=== PATIENT | male | born 1945 | race Caucasian/White ===

== ENCOUNTER 2023-11-22 14:20 | Emergency (ER) | payer MEDICARE, SELFPAY ==
[2023-11-22] VITALS (12 sets, daily range): BP systolic 107–128; BP diastolic 65–77; PULSE 65–87; RESP 11–20; TEMP 36.7; O2SAT 94–99
--- NOTE | 2023-11-22 14:48 | ED.LOWEXIN ---
HPI - Extremity Injury (Lower) General Chief Complaint: Extremity Injury, Lower Stated Complaint: leg pain Time Seen by Provider: 11/22/23 14:25 History of Present Illness HPI Narrative: patient presenting with sudden severe pain to his right leg starting from the knee down, happened when he was walking. He had injured his left knee recently and had been using his right leg more than usual. Never had symptoms like this before, he states that he also has lost sensation below his right knee, other than some burning sensation, he also is only able to barely move his right foot. Does have history of high cholesterol. denies recent trauma to RLE. Related Data Allergies Allergy/AdvReac Type Severity Reaction Status Date / Time atorvastatin [From Lipitor] Allergy Unknown Verified 11/22/23 14:40 gadobenic acid Allergy Anaphylaxis Verified 11/22/23 14:36 [From contrast - MRI] iohexol Allergy Unknown Verified 11/22/23 14:36 [From contrast - CT, X-RAY] Review of Systems Review of Systems: CONST: No fever. HEENT: No sore throat C/V: No chest pain RESP: No cough GI: no abdominal pain : No dysuria. M/S: Right leg pain SKIN: No rash. NEURO: [focal numbness/weakness RLE] PSYCH: [No depression] Exam Narrative: EXAMINATION OF ORGAN SYSTEMS/BODY AREAS: Constitutional: Vital signs per nursing GENERAL: Appears slightly uncomfortable HEAD: Normal with no signs of head trauma. EYES: EOMI, conjunctiva normal ENT: Hearing grossly intact LUNGS: Nonlabored breathing. HEART: [Regular rate and rhythm]. No palpable DP or PT pulse RLE; strong DP/PT on LLE. Normal pop pulse RLE. ABD: [Soft], [nontender to palpation] EXT: Able to wiggle toes RLE but barely able to dorsiflex/plantarflex against gravity. No obvious deformity/swelling. SKIN: Paler, colder RLE compared to left below knee NEURO: [Alert and oriented x 3. Diminished sensation/strength RLE.] PSYCH: Normal affect Course Vital Signs Vital signs: Vital Signs Temperature 98.1 F 11/22/23 14:41 Pulse Rate 75 11/22/23 14:41 Respiratory Rate 12 11/22/23 14:41 Blood Pressure 128/77 11/22/23 14:41 Pulse Oximetry 95 11/22/23 14:41 Temperature 98.1 F 11/22/23 14:41 Pulse Rate 75 11/22/23 14:41 Respiratory Rate 12 11/22/23 14:41 Blood Pressure 128/77 11/22/23 14:41 Pulse Oximetry 95 11/22/23 14:41 MDM - Extremity Injury (Lower) MDM Narrative Medical decision making narrative: 78-year-old male presenting here with severe sudden onset pain to his right lower extremity, with coolness and weakness and numbness sensation, on exam he does appear uncomfortable, diminished sensation/strength RLE, poor cap refill, colder/paler foot. I am highly concerned for ischemic foot; on my bedside US I cannot see flow to R DP or PT; does have good flow to popliteal, and L DP/PT. He tells me he has anaphylactic shock to CT contrast dye so I have initiated pretreatment with steroids/benadryl, given morphine, and started heparin gtt. US called that their arterial doppler machine is broken and they cannot do any arterial US. EKG - 12-Lead: Performed at 1533. Interpreted by me. [Sinus rhythm]. Rate 59. Left axis. IL-interval 217. QRS duration [normal]. QTc 352. [No ST segment elevation or depression]. [T-wave normal]. Impression: No EKG evidence of acute ischemia or dysrhythmia. I discussed with patient/family need for transfer for vascular surgery and they requested Manuel. D/w vascular Dr. Moses at [facility] who requests patient transfer to ER there for definitive evaluation/treatment and pretreatment. D/w Dr Gonzalez, ER attending who accepts patient. Patient/family updated on plan. Lab Data 11/22/23 14:52 11/22/23 14:52 Labs: Lab Results 11/22/23 11/22/23 Range/Units 14:52 14:53 WBC 7.6 (4.5-10.0) K/mm3 RBC 4.62 (4.6-6.20) M/mm3 Hgb 14.7 (14.0-18.0) g/dL Hct 43.5 (42.0-52.0) % MC
[2023-11-22] MEDS: MORPHINE SULFATE (*CRX) 4 MG/ML INJ IV PUSH (14:54)
--- NOTE | 2023-11-22 14:59 | ECG_ITS ---
Measurements Intervals [place] Rate: 59 P: 38 [place]: 217 QRS: -46 QRSD: 98 T: 76 QT: 352 QTc: 350 Interpretive Statements SINUS BRADYCARDIA WITH FIRST DEGREE AV BLOCK LOW QRS VOLTAGE IN PRECORDIAL LEADS INCOMPLETE RIGHT BUNDLE BRANCH BLOCK LEFT ANTERIOR FASCICULAR BLOCK BORDERLINE ST-T WAVE ABNORMALITY- ANTEROLAT/HIGH LAT LEADS BASELINE WANDER- V4-V6 ABNORMAL ECG NO PREVIOUS ECG AVAILABLE FOR COMPARISON Electronically Signed On 11-23-2023 6:13:14 ADMIN DIR by Ananth Cevallos D.O.
[2023-11-22 15:00] LABS: Basophils Percent Auto 0.5 % (0.2-1.2); Eosinophils Absolute Auto 0.2 K/mm3 (0-0.3); Hematocrit 43.5 % (42.0-52.0); Hemoglobin 14.7 g/dL (14.0-18.0); Immature Granulocyte Absolute 0.05 K/mm3 (0.00-0.031); Immature Granulocyte Percent A 0.7 % (0-0.5); Immature Platelet Fraction Pct 2.7 % (0.9-11.2); Lymphocytes Absolute Auto 0.99 K/mm3 (0.9-3.2); Lymphocytes Percent Auto 13.1 % (18.3-44.2); Mean Corpuscular HGB Conc 33.8 g/dl (32-36); Mean Corpuscular Hemoglobin 31.8 pg (26-34); Mean Corpuscular Volume 94.2 fl (80-100); Mean Platelet Volume 9.5 fl (7.4-10.4); Monocytes Absolute Auto 0.5 K/mm3 (0.1-0.6); Neutrophils Absolute Auto 5.8 K/mm3 (1.3-6.7); Neutrophils Percent Auto 76.7 % (45.5-73.1); Platelet Count Result 147 k/mm3 (150-375); Red Blood Count 4.62 M/mm3 (4.6-6.20); Red Cell Distribution Width 13.9 % (11.5-14.5); White Blood Count 7.6 K/mm3 (4.5-10.0)
[2023-11-22 15:09] LABS: Lactic Acid Reflex 1.8 mmol/L (0.7-2.0)
[2023-11-22 15:09] LABS: Anion Gap 8 mmol/L (8-16); Blood Urea Nitrogen 20 mg/dL (9-20); Calcium 8.9 mg/dL (8.4-10.2); Carbon Dioxide 23 mmol/L (22-30); Chloride 104 mmol/L (98-107); Estimated CRCL calculation 40 ml/min; Estimated Glomerular Filt Rate 42; Glucose 133 mg/dL (65-110); Potassium 4.6 mmol/L (3.4-5.0); Sodium 135 mmol/L (137-145)
[2023-11-22] MEDS: HEPARIN SOD/D5W 100 UNITS/ML 25,000 UNITS/250 ML BAG 15 UNITS IV CONT (15:11)
[2023-11-22] MEDS: HEPARIN SODIUM 5,000 UNITS/ML VIAL 7500 UNITS IV PUSH (15:11)
[2023-11-22 15:14] LABS: Prothrombin Time 13.3 Seconds (11.1-14.7)
[2023-11-22 15:15] LABS: Partial Thromboplastin Time 28.1 SECONDS (22.3-36.8)
[2023-11-22] MEDS: diphenhydrAMINE HCl INJ 50 MG/ML VIAL IV PUSH (15:36)
[2023-11-22] MEDS: methylPREDNISolone SOD SUCC 125 MG VIAL IV PUSH (15:43)
--- NOTE | 2023-11-22 17:12 | PC.NURSE ---
1545- Pt transported via EMS, heparin drip continued per EMS
== END 2023-11-22 16:32 | disposition short-term general hospital (02) ==
PROVIDERS: Emergency Provider Emergency Medicine; PCP Family Medicine
DX: I99.8 Other disorder of circulatory system (principal); E78.00 Pure hypercholesterolemia, unspecified; R00.1 Bradycardia, unspecified; I44.0 Atrioventricular block, first degree; I45.2 Bifascicular block; R94.31 Abnormal electrocardiogram [ECG] [EKG]
CPT/HCPCS: 36415; 80048; 83605; 85025; 85055; 85610; 85730; 86850; 86900; 86901; 93005; 96365; 96375; 99285; J1200; J1644; J2270; J2930

== ENCOUNTER 2023-12-29 10:05 | Emergency (ER) | payer MEDICARE, SELFPAY ==
[2023-12-29] VITALS (7 sets, daily range): BP systolic 125–147; BP diastolic 67–79; PULSE 61–74; RESP 14–16; TEMP 36.4–36.7; O2SAT 97–100
--- NOTE | ~2023-12-29 | XR_ITS ---
EXAMINATION: XR chest 2V DATE: 12/29/2023 12:38 INDICATION: Dyspnea, hypotension and weakness TECHNIQUE: AP and lateral views of the chest were obtained. COMPARISON: None FINDINGS: The lungs are clear with no focal airspace opacities, pulmonary edema, pleural effusion or pneumothor ax. The cardiomediastinal silhouette is normal. Dual lead pacemaker seen with leads projecting over t he expected locations of the right atrium and right ventricle. Mild thoracic spondylosis. IMPRESSION: 1. No acute cardiopulmonary disease. Reviewed, dictated and finalized at location A. 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
--- NOTE | ~2023-12-29 | NM_ITS ---
EXAMINATION: NM lung vent and perfusion DATE: 12/29/2023 12:32 INDICATION: Hypotension, dyspnea and blood clots TECHNIQUE: 4.8 mCi xenon-133 by inhalation and 5.5 mCi Tc-99m MAA by intravenous route. Scintigraphi c images of the chest were obtained. COMPARISON: Chest radiograph dated 12/29/2023 FINDINGS: There is homogeneous radiotracer activity throughout the lungs on the single breath ventilation seque nce. There is relatively homogeneous perfusion throughout the lungs. No discrete ventilation and per fusion mismatch is identified. IMPRESSION: 1. Low probability for pulmonary embolism. Reviewed, dictated and finalized at location A. KER WIRER
--- NOTE | 2023-12-29 10:11 | ECG_ITS ---
Measurements Intervals [place] Rate: 63 P: 65 PA: 259 QRS: -35 QRSD: 99 T: 73 QT: 409 QTc: 421 Interpretive Statements SINUS RHYTHM WITH FIRST DEGREE AV BLOCK MARKED LEFT AXIS DEVIATION [QRS AXIS < -30] INCOMPLETE RIGHT BUNDLE BRANCH BLOCK [90+ ms QRS DURATION, TERMINAL R IN V1/V2, 40+ ms S IN I/aVL/V4/V5/V6] COMPARED TO ECG 11/22/2023 15:08:41 SINUS RHYTHM NOW PRESENT Electronically Signed On 12-29-2023 15:37:43 CASTING AGENT by Reno Car M.D.
[2023-12-29 10:41] LABS: Basophils Percent Auto 0.7 % (0.2-1.2); Eosinophils Absolute Auto 0.4 K/mm3 (0-0.3); Hematocrit 34.4 % (42.0-52.0); Hemoglobin 10.9 g/dL (14.0-18.0); Immature Granulocyte Absolute 0.04 K/mm3 (0.00-0.031); Immature Granulocyte Percent A 0.7 % (0-0.5); Lymphocytes Absolute Auto 1.44 K/mm3 (0.9-3.2); Mean Corpuscular HGB Conc 31.7 g/dl (32-36); Mean Corpuscular Hemoglobin 30.9 pg (26-34); Mean Corpuscular Volume 97.5 fl (80-100); Mean Platelet Volume 9.8 fl (7.4-10.4); Monocytes Absolute Auto 0.4 K/mm3 (0.1-0.6); Monocytes Percent Auto 6.8 % (2.6-8.5); Neutrophils Absolute Auto 3.7 K/mm3 (1.3-6.7); Neutrophils Percent Auto 60.8 % (45.5-73.1); Platelet Count Result 199 k/mm3 (150-375); Red Blood Count 3.53 M/mm3 (4.6-6.20)
[2023-12-29 10:52] LABS: INR 1.1; Prothrombin Time 14.7 Seconds (11.1-14.7)
[2023-12-29 10:53] LABS: Partial Thromboplastin Time 23.8 SECONDS (22.3-36.8)
--- NOTE | 2023-12-29 11:26 | PC.NURSE ---
Agree with assessment of Lili Omalley student nurse.
[2023-12-29 11:59] LABS: Alanine Aminotransferase 15 U/L (6-50); Alkaline Phosphatase 101 U/L (38-126); Anion Gap 3 mmol/L (8-16); Aspartate Amino Transferase 30 U/L (17-59); Bilirubin,Total 0.5 mg/dL (0.2-1.3); Blood Urea Nitrogen 18 mg/dL (9-20); Calcium 9.1 mg/dL (8.4-10.2); Carbon Dioxide 29 mmol/L (22-30); Chloride 99 mmol/L (98-107); Estimated CRCL calculation 46 ml/min; Estimated Glomerular Filt Rate 49; Glucose 128 mg/dL (65-110); Potassium 4.6 mmol/L (3.4-5.0); Sodium 131 mmol/L (137-145)
[2023-12-29 12:11] LABS: Troponin I < 0.012 ng/mL (0.000-0.034)
--- NOTE | 2023-12-29 13:50 | ED.GENADULT ---
HPI - General Adult General Chief complaint: Weakness Stated complaint: weakness Time Seen by Provider: 12/29/23 10:11 Source: patient Mode of arrival: EMS Limitations: no limitations History of Present Illness HPI narrative: 78 yr with a history of CAD, sick sinus syndrome, hyperlipidemia, right lower lumbar is ischemia status post bypass surgery, right leg multiple fish abdomen is presently in the rehab center was brought in for a complaint of near syncopal episode. Patient states that he had a sudden onset of right-sided chest pain which made him extremely nauseated and had a near syncopal episode. Patient presently denies having any chest pain. Patient states that every time he moves his right shoulder gets pain along the right side of his chest. Denies any shortness of breath or abdominal pain. States that he started rehab must have done something to his back and chest Onset (ago): hour(s) (1) Location: chest Radiation: non-radiation Quality: aching Pain Consistency: constant Relieving factors: immobilization Exacerbating factors: none Associated symptoms: denies other symptoms Related Data Home Medications Medication Instructions Recorded Confirmed acetaminophen 500 mg tablet 500 mg PO Q6H 12/08/23 12/25/23 allopurinol 300 mg tablet 300 mg PO DAILY 12/08/23 12/25/23 aspirin 81 mg chewable tablet 81 mg PO DAILY 12/08/23 12/25/23 (Aspirin Childrens) escitalopram oxalate 5 mg tablet 5 mg PO DAILY 12/08/23 12/25/23 gabapentin 100 mg capsule 200 mg PO TID 12/08/23 12/25/23 lidocaine 5 % topical patch 2 patch topical DAILY 12/08/23 12/25/23 (Lidoderm) oxycodone 5 mg tablet 5 mg PO Q4H PRN Pain rated 6 or 12/08/23 12/25/23 greater polyethylene glycol 3350 17 gram 17 g PO DAILY 12/08/23 12/25/23 oral powder packet rivaroxaban 20 mg tablet 20 mg PO DAILY 12/08/23 12/25/23 aluminum-mag hydroxide-simethicone 30 ml PO Q4H 12/25/23 12/25/23 400 mg-400 mg-40 mg/5 mL oral susp bacitracin 500 unit/gram topical 1 applic topical DAILY 12/25/23 12/25/23 ointment sennosides 8.6 mg-docusate sodium 1 tab-cap PO BID 12/25/23 12/25/23 50 mg capsule (Senna Plus) Allergies Allergy/AdvReac Type Severity Reaction Status Date / Time atorvastatin [From Lipitor] Allergy Unknown Verified 12/29/23 10:49 gadobenic acid Allergy Anaphylaxis Verified 12/29/23 10:49 [From contrast - MRI] levofloxacin [From Levaquin] Allergy Unknown Verified 12/29/23 10:49 iohexol AdvReac Unknown Verified 12/29/23 10:49 [From contrast - CT, X-RAY] Review of Systems Review of Systems: All systems reviewed & are unremarkable except as noted in HPI and below Constitutional: Constitutional: Reports no additional constitutional complaints Eyes: Eyes: Reports no additional eye complaints ENT: Reports system reviewed and no additional complaints, except as documented Cardiovascular: Cardiovascular: Reports as per HPI Respiratory: Respiratory: Reports as per HPI Gastrointestinal: Gastrointestinal: Reports nausea Musculoskeletal: Musculoskeletal: Reports no additional musculoskeletal complaints PMFSH Social History Social History Smoking packs per day: 1 Smoking cigarettes per day: 20.0 Smoking status: Former smoker Tobacco type: cigarettes Second hand tobacco smoke exposure: No Alcohol intake: never Substance use: never Substance use type: does not use Do You Feel Safe in your Home?: Yes Lack of Transportation: No Lack of Food: Never True Current Housing: I Have Housing Concerned About Future Housing: No Difficulty Paying Gas/Electric Bills: No Difficulty Paying for Meds: No Currently Unemployed: No Education: High School Diploma/GED Difficulty w/ Childcare or Family Care: No Spiritual care concerns: No Exam Narrative: GENERAL: Well-appearing, well-nourished, and in no acute distress. HEAD: Normocephalic, atraumatic. EYES: PE
== END 2023-12-29 14:27 ==
PROVIDERS: Emergency Provider Family Medicine; PCP Family Medicine
DX: R55 Syncope and collapse (principal); R07.9 Chest pain, unspecified; I25.10 Atherosclerotic heart disease of native coronary artery without angina pectoris; E78.5 Hyperlipidemia, unspecified; Z87.891 Personal history of nicotine dependence
CPT/HCPCS: 36415; 71046; 78582; 80053; 84484; 85025; 85610; 85730; 93005; 99284; A9540; A9558

== ENCOUNTER 2024-01-03 18:57 | Inpatient (IN) | payer MEDICARE, SELFPAY ==
--- NOTE | ~2024-01-03 | XR_ITS ---
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 RECENT SX TO LEG AT [facility] Comparison: 12/29/2023. RESULT: Lines, tubes, and devices: Left chest pacer with intact leads. Lungs and pleura: Clear. Cardiomediastinal silhouette: Stable. Other: No acute osseous or upper abdominal finding. IMPRESSION: No acute cardiopulmonary process. Reviewed, dictated and finalized at location K. HAMMER OPERATOR HELPER
[2024-01-03 18:54] VITALS: BP 105/61; PULSE 79; RESP 20; TEMP 36.4; O2SAT 95
--- NOTE | 2024-01-03 19:22 | ECG_ITS ---
Measurements Intervals [place] Rate: 72 P: 56 [place]: 233 QRS: -48 QRSD: 95 T: 55 QT: 363 QTc: 398 Interpretive Statements SINUS RHYTHM WITH FIRST DEGREE AV BLOCK INCOMPLETE RIGHT BUNDLE BRANCH BLOCK [90+ ms QRS DURATION, TERMINAL R IN V1/V2, 40+ ms S IN I/aVL/V4/V5/V6] LEFT ANTERIOR FASCICULAR BLOCK [QRS AXIS <= -45, QR IN I, RS IN II] ABNORMAL ECG COMPARED TO ECG 12/29/2023 10:14:07 NO SIGNIFICANT CHANGE Electronically Signed On 01-04-2024 7:21:08 TWIST MAKER by Eric Baires M.D.
[2024-01-03] MEDS: SODIUM CHLORIDE 0.9% IV 1,000 ML 999 ML IV CONT ×3 (19:31→21:53)
[2024-01-03 19:41] LABS: Basophils Absolute Auto 0.1 K/mm3 (0.0-0.1); Basophils Percent Auto 0.5 % (0.2-1.2); Hematocrit 31.3 % (42.0-52.0); Immature Granulocyte Absolute 0.81 K/mm3 (0.00-0.031); Immature Granulocyte Percent A 3.8 % (0-0.5); Lymphocytes Absolute Auto 1.27 K/mm3 (0.9-3.2); Lymphocytes Percent Auto 5.9 % (18.3-44.2); Mean Corpuscular HGB Conc 31.9 g/dl (32-36); Mean Corpuscular Hemoglobin 31.1 pg (26-34); Mean Corpuscular Volume 97.2 fl (80-100); Mean Platelet Volume 9.3 fl (7.4-10.4); Monocytes Absolute Auto 1.6 K/mm3 (0.1-0.6); Monocytes Percent Auto 7.4 % (2.6-8.5); Neutrophils Absolute Auto 17.7 K/mm3 (1.3-6.7); Neutrophils Percent Auto 82.4 % (45.5-73.1); Platelet Count Result 193 k/mm3 (150-375); Red Blood Count 3.22 M/mm3 (4.6-6.20); Red Cell Distribution Width 16.7 % (11.5-14.5); White Blood Count 21.5 K/mm3 (4.5-10.0)
[2024-01-03 19:50] LABS: Anisocytosis 1+ (NORMAL); Ovalocytes 1+ (NORMAL); Platelet Estimate Adequate (Adequate); Schistocytes None Seen (NORMAL)
[2024-01-03 19:52] LABS: INR 1.7; Prothrombin Time 21.2 Seconds (11.1-14.7)
[2024-01-03 19:52] LABS: Lactic Acid Reflex 1.2 mmol/L (0.7-2.0)
[2024-01-03 19:53] LABS: Alanine Aminotransferase 12 U/L (6-50); Albumin Level 3.6 g/dL (3.5-5.1); Alkaline Phosphatase 82 U/L (38-126); Anion Gap 6 mmol/L (8-16); Aspartate Amino Transferase 24 U/L (17-59); Bilirubin,Total 0.6 mg/dL (0.2-1.3); Blood Urea Nitrogen 32 mg/dL (9-20); Calcium 8.7 mg/dL (8.4-10.2); Carbon Dioxide 26 mmol/L (22-30); Chloride 93 mmol/L (98-107); Estimated CRCL calculation 28 ml/min; Estimated Glomerular Filt Rate 28; Glucose 140 mg/dL (65-110); Lipase 29 U/L (23-300); Partial Thromboplastin Time 45.4 SECONDS (22.3-36.8); Phosphorus 4.5 mg/dL (2.5-4.5); Sodium 125 mmol/L (137-145)
[2024-01-03 20:03] LABS: NT Pro B Type Natriuretic Pept 1590 pg/mL (19.9-100); Troponin I < 0.012 ng/mL (0.000-0.034)
--- NOTE | 2024-01-03 20:05 | ED.GENADULT ---
HPI - General Adult General Chief complaint: Recheck/Abnormal Lab/Rx Stated complaint: ABNORMAL LABS, FEVER, DARK URINE, AMS Time Seen by Provider: 01/03/24 19:15 History of Present Illness HPI narrative: This is a 78-year-old male presenting from [facility] for fever and tachycardia. History taken form [facility] progress note: Patient is status post right external iliac thrombectomy and 4 compartment fasciotomy on 11/22, fasciotomy closure by ACCS on 11/25/2023, lateral fasciotomy site closed 11/28 and sutures removed on 12/08 prior to discharge to [facility].? On 12/10 he return to the ED with worsening right lower extremity pain and swelling over the past 48 hours.? 2 status post OR for opening or of medial fasciotomy site; evacuation of hematoma; placement of NPWT.? Wound exploration; excisional debridement of skin and subcutaneous tissue; placement of NPWT by ACCS.? 12/15; return to the OR with ACCS for debridement, wound VAC and Manolo's ladder.? Lateral aspect will need a STSG.? Continue aspirin 12/19 RTOR with ACCS for closure of medial fasciotomy and skin graft lateral fasciotomy.? Wound VAC to lateral site will stay for 5 days.? Heparin drip resumed Patient has been doing well at the rehab center however yesterday he spiked a fever of 102.7. Patient is complaining fevers headaches and multiple episodes of nausea and vomiting. He has no pain anywhere. No chest pain or shortness of breath, abdominal pain. No increased pain at his surgical sites. At [facility] they obtained laboratory studies chest x-ray viral swabs and blood cultures. Additionally he was given a 1 g dose of ceftriaxone. Related Data Home Medications Medication Instructions Recorded Confirmed acetaminophen 500 mg tablet 500 mg PO Q6H 12/08/23 12/25/23 allopurinol 300 mg tablet 300 mg PO DAILY 12/08/23 12/25/23 aspirin 81 mg chewable tablet 81 mg PO DAILY 12/08/23 12/25/23 (Aspirin Childrens) escitalopram oxalate 5 mg tablet 5 mg PO DAILY 12/08/23 12/25/23 gabapentin 100 mg capsule 200 mg PO TID 12/08/23 12/25/23 lidocaine 5 % topical patch 2 patch topical DAILY 12/08/23 12/25/23 (Lidoderm) oxycodone 5 mg tablet 5 mg PO Q4H PRN Pain rated 6 or 12/08/23 12/25/23 greater polyethylene glycol 3350 17 gram 17 g PO DAILY 12/08/23 12/25/23 oral powder packet rivaroxaban 20 mg tablet 20 mg PO DAILY 12/08/23 12/25/23 aluminum-mag hydroxide-simethicone 30 ml PO Q4H 12/25/23 12/25/23 400 mg-400 mg-40 mg/5 mL oral susp bacitracin 500 unit/gram topical 1 applic topical DAILY 12/25/23 12/25/23 ointment sennosides 8.6 mg-docusate sodium 1 tab-cap PO BID 12/25/23 12/25/23 50 mg capsule (Senna Plus) Allergies Allergy/AdvReac Type Severity Reaction Status Date / Time atorvastatin [From Lipitor] Allergy Unknown Verified 01/03/24 22:09 gadobenic acid Allergy Anaphylaxis Verified 01/03/24 22:09 [From contrast - MRI] levofloxacin [From Levaquin] Allergy Unknown Verified 01/03/24 22:09 iohexol AdvReac Unknown Verified 01/03/24 22:09 [From contrast - CT, X-RAY] REPLACED BY [facility] Social History Social History Smoking packs per day: 1 Smoking cigarettes per day: 20.0 Smoking status: Former smoker Tobacco type: cigarettes Second hand tobacco smoke exposure: No Alcohol intake: never Substance use: never Substance use type: does not use Do You Feel Safe in your Home?: Yes Lack of Transportation: No Lack of Food: Never True Current Housing: I Have Housing Concerned About Future Housing: No Difficulty Paying Gas/Electric Bills: No Difficulty Paying for Meds: No Currently Unemployed: No Education: High School Diploma/GED Difficulty w/ Childcare or Family Care: No Spiritual care concerns: No Exam Narrative: APPEARANCE: No apparent distress. A&O x4 Head: atraumatic. EYES: EOMI, NOSE: Atraumatic NECK: Trachea midline RESPIRATORY: No increased rat
[2024-01-03 20:31] LABS: Potassium 5.6 mmol/L (3.4-5.0)
[2024-01-03] MEDS: SODIUM ZIRCONIUM CYCLOSILICATE 10 GM POWD.PACK PO (21:25)
[2024-01-03] MEDS: DEXTROSE 50% 25 GM/50 ML SYRINGE IV PUSH (21:28)
[2024-01-03] MEDS: INSULIN HUMAN REGULAR (*BKC) 100 UNITS/ML 10 UNITS IV PUSH (21:28)
[2024-01-03 21:36] LABS: Appearance Urine Cloudy (Clear); Bacteria Urine Rare /hpf; Bilirubin Urine Negative (Negative); Blood Urine 3+ (Negative); Color Urine Dark Yellow (Yellow); Glucose Urine UA Negative (Negative); Ketones Urine Negative (Negative); Leukocyte Esterase Ur 3+ LEU/UL (Negative); Need Manual Microscopic Reviewed; Nitrate Urine Negative (Negative); Protein Urine 1+ mg/dL (Negative); RBC Urine 21-50 /hpf (0-2); Specific Grav Ur 1.015 (1.001-1.035); Squamous Epithelial Cell Urine None seen /hpf (Few); WBC Urine >100 /hpf
[2024-01-03 21:37] LABS: Add Urine Microscopic? YES
[2024-01-03 21:38] LABS: Glucose Point of Care 124 mg/dl (65-105)
[2024-01-03 22:04] LABS: Glucose Point of Care 170 mg/dl (65-105)
[2024-01-03 22:12] VITALS: BP 92/54; PULSE 81; RESP 18; O2SAT 95
[2024-01-03 23:09] VITALS: BP 97/62; PULSE 71; RESP 13; TEMP 36.4; O2SAT 93
[2024-01-03 23:39] LABS: Troponin I < 0.012 ng/mL (0.000-0.034)
[2024-01-03 23:54] LABS: Influenza A QL RT-PCR Negative (Negative); Influenza B QL RT-PCR Negative (Negative); RSV RNA, RT-PCR Negative (Negative); SARS-CoV-2 RNA PCR Negative (Negative)
[2024-01-04] VITALS (15 sets, daily range): BP systolic 101–119; BP diastolic 33–68; PULSE 66–100; RESP 15–20; TEMP 36.1–36.8; O2SAT 95–100; BMI 26.3
[2024-01-04] MEDS: LACTATED RINGERS 1,000 ML 125 ML IV CONT ×2 (01:10→10:36)
--- NOTE | 2024-01-04 01:30 | ADMGEN ---
This patient, Eric Thrasher, was admitted to IMU Room 231-01. Patient/family oriented to hospital policies and general routines including ID bracelet, bed and alarms, visiting hours, pain management, procedures, bathroom and other care routines, personal items, smoking policy, room service/diet, and visiting hours. Information on how to activate the Rapid Response Team has been discussed. Patient/Family are encouraged to report perceived risks to care and to ask questions if they do not understand what they are told or what they should do.
--- NOTE | 2024-01-04 02:28 | PM.IMHP ---
H&P: HPI History of Present Illness Date/Time: 01/04/24 02:28 Chief Complaint: Fever and tachycardia. This is a 78-year-old male patient is status post right external iliac thrombectomy and 4 compartment fasciotomy was transferred from [facility] because of fever and tachycardia. Patient is awake alert not in acute distress. Patient denies any fever chills dizziness lightheadedness no blurred vision no chest pains no shortness of breath no cough no nausea no vomiting no diarrhea no dysuria no muscle and joint pains. Vital signs in the emergency room was stable. CBC showed WBC count of 21.5 hemoglobin 10.0 hematocrit 31.3 platelets count 193. PTT 21.2 INR 1.7 APTT 45.4. Sodium 125 potassium 5.6 chloride 93 carbon dioxide 26 BUN 32 creatinine 2.30. Glucose 140. Troponin unremarkable. BNP 1590. TSH 1.110. Lipase 29. Urinalysis showing bacteriuria and pyuria. Influenza COVID and RSV negative. Chest x-ray no acute cardiopulmonary process EKG showed sinus rhythm with first-degree AV block.. Patient was given IV ceftriaxone and IV fluids in the emergency room. Patient was also given or Lokelma. Review of Systems Review of Systems: A 12 point review of system is done and is only positive what is dictated in the history of present illness. [facility] Family History Family History (Updated 01/04/24 @ 02:26 by Suellen Birmingham RN) Other Unknown family medical history Social History Social History Smoking packs per day: 1 Smoking cigarettes per day: 20.0 Smoking status: Former smoker Tobacco type: cigarettes Second hand tobacco smoke exposure: No Alcohol intake: never Substance use: never Substance use type: does not use Do You Feel Safe in your Home?: Yes Lack of Transportation: No Lack of Food: Never True Current Housing: I Have Housing Concerned About Future Housing: No Difficulty Paying Gas/Electric Bills: No Difficulty Paying for Meds: No Currently Unemployed: No Education: Decline to Answer Difficulty w/ Childcare or Family Care: No Spiritual care concerns: No Meds Home Medications and Allergies Home Medications Medication Instructions Recorded Confirmed Type allopurinol 300 mg tablet 300 mg PO DAILY 12/08/23 01/04/24 History aspirin 81 mg chewable tablet 81 mg PO DAILY 12/08/23 01/04/24 History (Aspirin Childrens) escitalopram oxalate 5 mg tablet 5 mg PO DAILY 12/08/23 01/04/24 History gabapentin 100 mg capsule 200 mg PO TID 12/08/23 01/04/24 History lidocaine 5 % topical patch 2 patch topical DAILY 12/08/23 01/04/24 History (Lidoderm) oxycodone 5 mg tablet 5 mg PO Q4H PRN Pain rated 6 or 12/08/23 01/04/24 History greater polyethylene glycol 3350 17 gram 17 g PO DAILY 12/08/23 01/04/24 History oral powder packet aluminum-mag hydroxide-simethicone 30 ml PO Q4H 12/25/23 01/04/24 History 400 mg-400 mg-40 mg/5 mL oral susp sennosides 8.6 mg-docusate sodium 1 tab-cap PO BID 12/25/23 01/04/24 History 50 mg capsule (Senna Plus) acetaminophen 325 mg tablet 650 mg PO Q6H 01/04/24 01/04/24 History apixaban 5 mg tablet 5 mg PO BID 01/04/24 01/04/24 History ibuprofen 200 mg tablet 600 mg PO Q6H PRN Fever 01/04/24 01/04/24 History ondansetron 4 mg disintegrating 4 mg PO Q6H PRN Nausea And Vomiting 01/04/24 01/04/24 History tablet Allergies Allergy/AdvReac Type Severity Reaction Status Date / Time atorvastatin [From Lipitor] Allergy Unknown Verified 01/03/24 22:09 gadobenic acid Allergy Anaphylaxis Verified 01/03/24 22:09 [From contrast - MRI] levofloxacin [From Levaquin] Allergy Unknown Verified 01/03/24 22:09 iohexol AdvReac Unknown Verified 01/03/24 22:09 [From contrast - CT, X-RAY] Vital Signs Vital Signs - 24 hr 01/03/24 18:54 01/03/24 22:12 01/03/24 23:09 Temperature 97.5 F L 97.6 F Pulse Rate 79 81 71 Respiratory Rate 20 18 13 Blood Pressure 105/61 92/54 L
[2024-01-04] MEDS: ACETAMINOPHEN 325 MG TABLET 650 MG PO ×2 (04:28→19:10)
[2024-01-04 09:45] LABS: Basophils Percent Auto 0.2 % (0.2-1.2); Eosinophils Absolute Auto 0.2 K/mm3 (0-0.3); Eosinophils Percent Auto 1.2 % (0-4.4); Hematocrit 28.7 % (42.0-52.0); Immature Granulocyte Absolute 0.32 K/mm3 (0.00-0.031); Lymphocytes Absolute Auto 0.95 K/mm3 (0.9-3.2); Lymphocytes Percent Auto 5.9 % (18.3-44.2); Mean Corpuscular HGB Conc 31.4 g/dl (32-36); Mean Corpuscular Hemoglobin 31.1 pg (26-34); Mean Corpuscular Volume 99.3 fl (80-100); Mean Platelet Volume 9.9 fl (7.4-10.4); Monocytes Absolute Auto 0.9 K/mm3 (0.1-0.6); Monocytes Percent Auto 5.7 % (2.6-8.5); Neutrophils Absolute Auto 13.8 K/mm3 (1.3-6.7); Platelet Count Result 180 k/mm3 (150-375); Red Blood Count 2.89 M/mm3 (4.6-6.20); Red Cell Distribution Width 16.7 % (11.5-14.5); White Blood Count 16.2 K/mm3 (4.5-10.0)
[2024-01-04 09:57] LABS: Alanine Aminotransferase 13 U/L (6-50); Albumin Level 3.1 g/dL (3.5-5.1); Alkaline Phosphatase 81 U/L (38-126); Anion Gap 5 mmol/L (8-16); Aspartate Amino Transferase 23 U/L (17-59); Bilirubin,Total 0.4 mg/dL (0.2-1.3); Blood Urea Nitrogen 29 mg/dL (9-20); Calcium 8.5 mg/dL (8.4-10.2); Carbon Dioxide 25 mmol/L (22-30); Chloride 101 mmol/L (98-107); Estimated CRCL calculation 40 ml/min; Estimated Glomerular Filt Rate 42; Glucose 102 mg/dL (65-110); Potassium 4.4 mmol/L (3.4-5.0); Sodium 131 mmol/L (137-145)
[2024-01-04] MEDS: SENNA/DOCUSATE SODIUM TABLET 1 TAB PO ×2 (10:37→16:31)
[2024-01-04] MEDS: ASPIRIN 81 MG CHEWABLE TABLET PO (10:37)
[2024-01-04] MEDS: GABAPENTIN 100 MG CAPSULE 200 MG PO ×2 (10:37→16:31)
[2024-01-04] MEDS: allopurinoL 300 MG TABLET PO (10:37)
[2024-01-04] MEDS: APIXABAN 5 MG TABLET PO ×2 (10:37→20:50)
[2024-01-04] MEDS: ESCITALOPRAM OXALATE 5 MG TABLET PO (10:38)
[2024-01-04] MEDS: oxyCODONE HCL (*CRX) 5 MG TAB IR PO ×3 (10:41→20:50)
--- NOTE | 2024-01-04 13:06 | PM.IMPN ---
Progress Note: A&P Assessment and Plan (1) Acute UTI: Code(s): N39.0 - Urinary tract infection, site not specified Status: Acute (2) Sepsis: Code(s): A41.9 - Sepsis, unspecified organism Status: Acute (3) Acute kidney injury: Code(s): N17.9 - Acute kidney failure, unspecified Status: Acute (4) Acute hyperkalemia: Code(s): E87.5 - Hyperkalemia Status: Acute Plan 78-year-old male presented from [facility] for fever and tachycardia. He spiked fever of 102.7 and received a dose antibiotic after cultures were obtained at the [facility] [place]. In ED evaluation his blood pressure was borderline and was diagnosed with sepsis with fever and leukocytosis of 21,000 was also hyponatremic at 1:25 a.m. with creatinine of 2.3. Hyperkalemic at 5.6. Diagnosis sepsis received IV fluid and ceftriaxone improvement in blood pressure. For hyperkalemia Lokelma dextrose/insulin were given. VALENTINA continues to improve hyponatremia improved continue on ceftriaxone IV. Follow urine culture and blood culture. He is status post right external iliac thrombectomy and 4 compartment fasciotomy to make closure by AC CS on 11/25/2023, lateral fasciotomy site close and sutures removed on 12/08 prior to discharge to [facility]. On 12/10 he returned to the ED with worsening right lower extremity pain and swelling of the past 48 hours. Secondary to status post OR for opening of the medial fasciotomy site evacuation of hematoma placement of an PE double ET. Wound exploration, excisional debridement wound VAC and Manolo's ladder. Lateral aspect will need ST SG. Continue aspirin 2/10 RT OR with ACCS for closure of medial fasciotomy and skin graft lateral fasciotomy. Wound VAC to that side will stay for 5 days. DVT prophylaxis on Eliquis Subjective Date/time seen: 01/04/24 13:06 Interval history: 78-year-old male presented from [facility] for fever and tachycardia. He spiked fever of 102.7 and received a dose antibiotic after cultures were obtained at the [facility] [place]. In ED evaluation his blood pressure was borderline and was diagnosed with sepsis with fever and leukocytosis of 21,000 was also hyponatremic at 1:25 a.m. with creatinine of 2.3. Hyperkalemic at 5.6. Diagnosis sepsis received IV fluid and ceftriaxone improvement in blood pressure. For hyperkalemia Lokelma dextrose/insulin were given. VALENTINA continues to improve hyponatremia improved continue on ceftriaxone IV. Follow urine culture and blood culture. He is status post right external iliac thrombectomy and 4 compartment fasciotomy to make closure by AC CS on 11/25/2023, lateral fasciotomy site close and sutures removed on 12/08 prior to discharge to [facility]. On 12/10 he returned to the ED with worsening right lower extremity pain and swelling of the past 48 hours. Secondary to status post OR for opening of the medial fasciotomy site evacuation of hematoma placement of an PE double ET. Wound exploration, excisional debridement wound VAC and Manolo's ladder. Lateral aspect will need ST SG. Continue aspirin 2/10 RT OR with ACCS for closure of medial fasciotomy and skin graft lateral fasciotomy. Wound VAC to that side will stay for 5 days. Heparin drip resumed Review of Systems Review of Systems: All systems reviewed & are unremarkable except as noted in HPI and below Exam Narrative: APPEARANCE: No apparent distress.? A&O x4 Head: atraumatic. EYES:? EOMI, NOSE: Atraumatic NECK: Trachea midline RESPIRATORY: No increased rate of breathing clear to auscultation CARDIOVASCULAR: RRR, no peripheral edema ABDOMINAL: Non-distended soft nontender no guarding rebound no CVA tenderness MUSCULOSKELETAl:? Focal exam of the right leg showed skin graft on the lateral thigh that is healing well without fall smell.? Surgical sites in the leg also.? Healing well without obvious signs of infection. NEURO: Alert. Moving 4/4 extremities SKIN:: War
--- NOTE | 2024-01-04 18:13 | PC.NURSE ---
This patient, Eric Thrasher, was transferred to [facility] on 01/04/24 at 1813. Personal belongings sent with patient. Report given to Kathryn HIDALGO. Appropriate documentation sent with patient.
--- NOTE | 2024-01-04 19:06 | ADMGEN ---
This patient, Eric Thrasher, was admitted to [facility] Surg Room 314-02. Patient/family oriented to hospital policies and general routines including ID bracelet, bed and alarms, visiting hours, pain management, procedures, bathroom and other care routines, personal items, smoking policy, room service/diet, and visiting hours. Information on how to activate the Rapid Response Team has been discussed. Patient/Family are encouraged to report perceived risks to care and to ask questions if they do not understand what they are told or what they should do.
[2024-01-05] MEDS: oxyCODONE HCL (*CRX) 5 MG TAB IR PO ×3 (02:17→18:04)
[2024-01-05 03:24] VITALS: BP 115/70; PULSE 80; RESP 17; TEMP 36.6; O2SAT 98
[2024-01-05 06:23] LABS: Basophils Absolute Auto 0.1 K/mm3 (0.0-0.1); Basophils Percent Auto 0.6 % (0.2-1.2); Eosinophils Absolute Auto 0.6 K/mm3 (0-0.3); Hematocrit 28.7 % (42.0-52.0); Hemoglobin 8.9 g/dL (14.0-18.0); Lymphocytes Absolute Auto 1.82 K/mm3 (0.9-3.2); Lymphocytes Percent Auto 17.5 % (18.3-44.2); Mean Platelet Volume 9.8 fl (7.4-10.4); Monocytes Absolute Auto 0.6 K/mm3 (0.1-0.6); Monocytes Percent Auto 5.5 % (2.6-8.5); Neutrophils Absolute Auto 7.2 K/mm3 (1.3-6.7); Neutrophils Percent Auto 69.4 % (45.5-73.1); Platelet Count Result 174 k/mm3 (150-375); Red Blood Count 2.87 M/mm3 (4.6-6.20); Red Cell Distribution Width 16.7 % (11.5-14.5); White Blood Count 10.4 K/mm3 (4.5-10.0)
[2024-01-05 06:34] LABS: Alanine Aminotransferase 13 U/L (6-50); Albumin Level 3.2 g/dL (3.5-5.1); Alkaline Phosphatase 79 U/L (38-126); Anion Gap 5 mmol/L (8-16); Aspartate Amino Transferase 27 U/L (17-59); Bilirubin,Total 0.3 mg/dL (0.2-1.3); Blood Urea Nitrogen 22 mg/dL (9-20); Calcium 8.9 mg/dL (8.4-10.2); Carbon Dioxide 26 mmol/L (22-30); Chloride 103 mmol/L (98-107); Estimated CRCL calculation 53 ml/min; Estimated Glomerular Filt Rate 59; Glucose 92 mg/dL (65-110); Magnesium 2.2 mg/dL (1.6-2.3); Sodium 134 mmol/L (137-145)
[2024-01-05 06:39] LABS: Potassium 4.5 mmol/L (3.4-5.0)
[2024-01-05 08:00] VITALS: BP 123/71; PULSE 71; RESP 16; TEMP 36.1; O2SAT 97
[2024-01-05] MEDS: ASPIRIN 81 MG CHEWABLE TABLET PO (09:11)
[2024-01-05] MEDS: APIXABAN 5 MG TABLET PO ×2 (09:11→20:30)
[2024-01-05] MEDS: GABAPENTIN 100 MG CAPSULE 200 MG PO ×3 (09:12→18:06)
[2024-01-05] MEDS: allopurinoL 300 MG TABLET PO (09:12)
[2024-01-05] MEDS: ESCITALOPRAM OXALATE 5 MG TABLET PO (09:12)
[2024-01-05 11:16] VITALS: O2SAT 97
[2024-01-05 12:00] VITALS: BP 114/67; PULSE 60; RESP 16; TEMP 36; O2SAT 100
[2024-01-05] MEDS: ACETAMINOPHEN 325 MG TABLET 650 MG PO ×2 (12:43→18:05)
--- NOTE | 2024-01-05 14:18 | PM.IMPN ---
Progress Note: A&P Assessment and Plan (1) Acute UTI: Code(s): N39.0 - Urinary tract infection, site not specified Status: Acute (2) Sepsis: Code(s): A41.9 - Sepsis, unspecified organism Status: Acute (3) Acute kidney injury: Code(s): N17.9 - Acute kidney failure, unspecified Status: Acute (4) Acute hyperkalemia: Code(s): E87.5 - Hyperkalemia Status: Acute Plan 78-year-old male presented from [facility] for fever and tachycardia. He spiked fever of 102.7 and received a dose antibiotic after cultures were obtained at [facility]. In ED evaluation his blood pressure was borderline and was diagnosed with sepsis with fever and leukocytosis of 21,000 was also hyponatremic at 1:25 a.m. with creatinine of 2.3. Hyperkalemic at 5.6. Diagnosis sepsis received IV fluid and ceftriaxone improvement in blood pressure. For hyperkalemia Lokelma dextrose/insulin were given. VALENTINA continues to improve hyponatremia improved continue on ceftriaxone IV. Follow urine culture and blood culture. Urine culture still pending. Continue ceftriaxone oral therapy once urine culture finalizes. This could be done at [facility] as well. Insurance authorization pending. Okay to DC if they are able to accept on oral antibiotics He is status post right external iliac thrombectomy and 4 compartment fasciotomy to make closure by AC CS on 11/25/2023, lateral fasciotomy site close and sutures removed on 12/08 prior to discharge to [facility]. On 12/10 he returned to the ED with worsening right lower extremity pain and swelling of the past 48 hours. Secondary to status post OR for opening of the medial fasciotomy site evacuation of hematoma placement of an PE double ET. Wound exploration, excisional debridement wound VAC and Manolo's ladder. Lateral aspect will need ST SG. Continue aspirin 2/10 RT OR with ACCS for closure of medial fasciotomy and skin graft lateral fasciotomy. Wound VAC to that side will stay for 5 days. DVT prophylaxis on Eliquis Subjective Date/time seen: 01/05/24 14:18 Interval history: 78-year-old male presented from [facility] for fever and tachycardia. He spiked fever of 102.7 and received a dose antibiotic after cultures were obtained at the [facility]. In ED evaluation his blood pressure was borderline and was diagnosed with sepsis with fever and leukocytosis of 21,000 was also hyponatremic at 1:25 a.m. with creatinine of 2.3. Hyperkalemic at 5.6. Diagnosis sepsis received IV fluid and ceftriaxone improvement in blood pressure. For hyperkalemia Lokelma dextrose/insulin were given. VALENTINA continues to improve hyponatremia improved continue on ceftriaxone IV. Follow urine culture and blood culture. He is status post right external iliac thrombectomy and 4 compartment fasciotomy to make closure by AC CS on 11/25/2023, lateral fasciotomy site close and sutures removed on 12/08 prior to discharge to [facility]. On 12/10 he returned to the ED with worsening right lower extremity pain and swelling of the past 48 hours. Secondary to status post OR for opening of the medial fasciotomy site evacuation of hematoma placement of an PE double ET. Wound exploration, excisional debridement wound VAC and Manolo's ladder. Lateral aspect will need ST SG. Continue aspirin 2/10 RT OR with ACCS for closure of medial fasciotomy and skin graft lateral fasciotomy. Wound VAC to that side will stay for 5 days. Heparin drip resumed 01/05/2024: No new complaints. No overnight events. Labs reviewed. Still has some urinary symptoms. Review of Systems Review of Systems: All systems reviewed & are unremarkable except as noted in HPI and below Exam Narrative: APPEARANCE: No apparent distress.? A&O x4 Head: atraumatic. EYES:? EOMI, NOSE: Atraumatic NECK: Trachea midline RESPIRATORY: No increased rate of breathing clear to auscultation CARDIOVASCULAR: RRR, no peripheral edema ABDO
[2024-01-05 16:00] VITALS: BP 124/67; PULSE 65; RESP 16; TEMP 36; O2SAT 100
[2024-01-05] MEDS: NEOMYCIN/POLYMYXIN/BACITRACIN OINTMENT PACKET 6 PACKET (18:06)
[2024-01-05 19:58] LABS: Glucose Point of Care 126 mg/dl (65-105)
[2024-01-05 20:00] VITALS: BP 118/56; PULSE 73; RESP 13; TEMP 36.8; O2SAT 96
[2024-01-06 04:50] VITALS: BP 152/74; PULSE 76; RESP 14; TEMP 36.4; O2SAT 96
[2024-01-06] MEDS: ACETAMINOPHEN 325 MG TABLET 650 MG PO ×4 (06:14→22:57)
[2024-01-06 06:46] LABS: Basophils Absolute Auto 0.1 K/mm3 (0.0-0.1); Basophils Percent Auto 0.9 % (0.2-1.2); Eosinophils Absolute Auto 0.6 K/mm3 (0-0.3); Eosinophils Percent Auto 7.8 % (0-4.4); Hematocrit 33.1 % (42.0-52.0); Hemoglobin 10.3 g/dL (14.0-18.0); Immature Granulocyte Absolute 0.06 K/mm3 (0.00-0.031); Immature Granulocyte Percent A 0.9 % (0-0.5); Lymphocytes Absolute Auto 1.38 K/mm3 (0.9-3.2); Lymphocytes Percent Auto 19.6 % (18.3-44.2); Mean Corpuscular HGB Conc 31.1 g/dl (32-36); Mean Corpuscular Hemoglobin 30.9 pg (26-34); Mean Corpuscular Volume 99.4 fl (80-100); Mean Platelet Volume 9.6 fl (7.4-10.4); Monocytes Absolute Auto 0.4 K/mm3 (0.1-0.6); Neutrophils Absolute Auto 4.6 K/mm3 (1.3-6.7); Neutrophils Percent Auto 64.8 % (45.5-73.1); Platelet Count Result 229 k/mm3 (150-375); Red Blood Count 3.33 M/mm3 (4.6-6.20); Red Cell Distribution Width 16.4 % (11.5-14.5)
[2024-01-06 06:56] LABS: Alanine Aminotransferase 17 U/L (6-50); Albumin Level 3.7 g/dL (3.5-5.1); Alkaline Phosphatase 92 U/L (38-126); Anion Gap 5 mmol/L (8-16); Aspartate Amino Transferase 29 U/L (17-59); Bilirubin,Total 0.5 mg/dL (0.2-1.3); Blood Urea Nitrogen 16 mg/dL (9-20); Calcium 9.6 mg/dL (8.4-10.2); Carbon Dioxide 32 mmol/L (22-30); Chloride 100 mmol/L (98-107); Estimated CRCL calculation 49 ml/min; Estimated Glomerular Filt Rate 54; Glucose 99 mg/dL (65-110); Magnesium 2.3 mg/dL (1.6-2.3); Potassium 4.5 mmol/L (3.4-5.0); Sodium 137 mmol/L (137-145)
[2024-01-06] MEDS: SENNA/DOCUSATE SODIUM TABLET 1 TAB PO ×2 (09:03→17:03)
[2024-01-06] MEDS: ESCITALOPRAM OXALATE 5 MG TABLET PO (09:03)
[2024-01-06] MEDS: GABAPENTIN 100 MG CAPSULE 200 MG PO ×3 (09:04→17:03)
[2024-01-06] MEDS: allopurinoL 300 MG TABLET PO (09:04)
[2024-01-06] MEDS: ASPIRIN 81 MG CHEWABLE TABLET PO (09:04)
[2024-01-06] MEDS: oxyCODONE HCL (*CRX) 5 MG TAB IR PO ×4 (09:10→22:57)
[2024-01-06] MEDS: APIXABAN 5 MG TABLET PO ×2 (09:10→21:37)
[2024-01-06 12:00] VITALS: BP 128/63; PULSE 65; RESP 20; TEMP 36.6; O2SAT 99
--- NOTE | 2024-01-06 15:34 | PM.IMPN ---
Progress Note: A&P Assessment and Plan (1) Sepsis: Code(s): A41.9 - Sepsis, unspecified organism Status: Acute Assessment and Plan: Patient presents with sepsis symptoms. CXR clear. BCx NGTD UCx growing GNB - called lab and was informed that it is Pseudomonas with sensitivities pending. WBC normal now. Change Rocephin to Cefepime (2) Acute UTI: Code(s): N39.0 - Urinary tract infection, site not specified Status: Acute Assessment and Plan: UA is consistent with UTI. UCx collected. Rocephin started. UCx growing GNB (verbally told it is pseudomonas). Follow up on UCx results. (3) Acute kidney injury: Code(s): N17.9 - Acute kidney failure, unspecified Status: Acute Assessment and Plan: Patient with underlying renal disease with Cr 1.1-1.6 range. Cr 2.3 but now back down to baseline. Monitor UOP, electrolytes and Cr. (4) Acute hyperkalemia: Code(s): E87.5 - Hyperkalemia Status: Acute Assessment and Plan: Potassium 5.6 on admission and now normal. Follow (5) Acute lower limb ischemia: Code(s): I99.8 - Other disorder of circulatory system Status: Acute Assessment and Plan: Patient presented to the ED 11/22/23 for leg pain and was found to have no pulses in right lower extremity.? He was transferred to [facility] for emergent evaluation and found to have acute lower extremity ischemia.? Taken to the OR for pulseless right foot with thrombectomy from the right external iliac artery and 4 compartment fasciotomy.? 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 Patient required NG tube which was removed 12/06.? Patient at [facility] for therapy (6) H/O fasciotomy: Code(s): Z98.890 - Other specified postprocedural states Status: Acute Assessment and Plan: As above Continue wound vac Plan Code status - full DVT prophylaxis on Eliquis Subjective Date/time seen: 01/06/24 15:34 Interval history: 78yo male status post right external iliac thrombectomy and 4 compartment fasciotomy was transferred from [facility] because of fever and tachycardia.?? Assuming care. Chart reviewed. He is 'feeling down' but denies SI/HI. No Cp or SOb. No n/v. No lower having dysuria and urine appears clear. Exam Narrative: AF 97.8 128/63 65 20 99% ra Gen - NARD sitting at the side of the bed. Chest - CTA bilaterally, nml RR CV - RRR S1/S2 Abd - Soft, NT/ND, Positive BS Ext - Rt LE AMELIA wrapped. No left pedal edema Neuro - Alert and appropriate Psych - Sad mood but normal affect. nml eye contact. well groomed. Skin - Warm and dry ? Objective Data Vital Signs Vital Signs: Vital Signs - 24 hr 01/05/24 16:00 01/05/24 20:00 01/06/24 04:50 Temperature 96.8 F L 98.2 F 97.6 F Pulse Rate 65 73 76 Respiratory Rate 16 13 14 Blood Pressure 124/67 118/56 L 152/74 H Pulse Oximetry 100 96 96 Oxygen Delivery 01/06/24 08:00 01/06/24 12:00 Temperature 97.8 F Pulse Rate 65 Respiratory Rate 20 Blood Pressure 128/63 Pulse Oximetry 99 Oxygen Delivery Room Air Intake/Output Intake/Output: Intake & Output 01/03/24 01/04/24 01/05/24 01/06/24 23:59 23:59 23:59 23:59 Intake Total 5750 3250 1730 1822 Output Total 200 3350 2575 1200 Balance 1090 -100 -845 622 Meds/Results Medications: Active Medications Generic Name Dose Route Start Last Admin Trade Name Freq PRN Reason Stop Dose Admin Acetaminophen 650 mg 01/04/24 04:05 01/06/24 12:29 Acetaminophen 325 Mg Tablet PO 650 mg Q6HR DARBY Administration Al Hydrox/Mg Hydrox/Simethicone 30 ml 01/04/24 18:09 Mag Hydrox/Al Hydrox/Simeth 30 Ml Udc PO Q4H PRN Indigestion Allopurinol 300 mg 01/04/24 09:00 01/06/24 09:04 Allopurinol 300 Mg Tablet PO 300 mg DAILY DARBY Administra
[2024-01-06] MEDS: CEFEPIME 1 GM/NS 50 ML 1 GM/50 ML BAG IVPB (17:03)
[2024-01-06 17:31] LABS: Glucose Point of Care 109 mg/dl (65-105)
--- NOTE | 2024-01-06 19:00 | PC.NURSE ---
Returned to room from OR per hospital bed.
[2024-01-06 20:00] VITALS: BP 107/59; PULSE 65; RESP 12; TEMP 36.6; O2SAT 96
[2024-01-07 04:00] VITALS: BP 132/62; PULSE 62; RESP 14; TEMP 36.3; O2SAT 98
[2024-01-07] MEDS: ACETAMINOPHEN 325 MG TABLET 650 MG PO ×3 (05:02→17:46)
[2024-01-07] MEDS: CEFEPIME 1 GM/NS 50 ML 1 GM/50 ML BAG IVPB ×2 (05:02→17:47)
[2024-01-07 06:41] LABS: Hematocrit 32.1 % (42.0-52.0); Hemoglobin 10.2 g/dL (14.0-18.0); Mean Corpuscular HGB Conc 31.8 g/dl (32-36); Mean Corpuscular Hemoglobin 31.1 pg (26-34); Mean Corpuscular Volume 97.9 fl (80-100); Mean Platelet Volume 9.6 fl (7.4-10.4); Platelet Count Result 221 k/mm3 (150-375); Red Blood Count 3.28 M/mm3 (4.6-6.20); Red Cell Distribution Width 15.9 % (11.5-14.5); White Blood Count 6.7 K/mm3 (4.5-10.0)
[2024-01-07 06:57] LABS: Anion Gap 7 mmol/L (8-16); Blood Urea Nitrogen 15 mg/dL (9-20); Calcium 9.3 mg/dL (8.4-10.2); Carbon Dioxide 30 mmol/L (22-30); Chloride 98 mmol/L (98-107); Estimated CRCL calculation 49 ml/min; Estimated Glomerular Filt Rate 54; Glucose 100 mg/dL (65-110); Potassium 4.6 mmol/L (3.4-5.0); Sodium 135 mmol/L (137-145)
[2024-01-07 08:21] LABS: Glucose Point of Care 97 mg/dl (65-105)
[2024-01-07] MEDS: allopurinoL 300 MG TABLET PO (09:51)
[2024-01-07] MEDS: ESCITALOPRAM OXALATE 5 MG TABLET PO (09:51)
[2024-01-07] MEDS: GABAPENTIN 100 MG CAPSULE 200 MG PO ×3 (09:51→17:45)
[2024-01-07] MEDS: SENNA/DOCUSATE SODIUM TABLET 1 TAB PO ×2 (09:51→17:45)
[2024-01-07] MEDS: ASPIRIN 81 MG CHEWABLE TABLET PO (09:51)
[2024-01-07] MEDS: APIXABAN 5 MG TABLET PO ×2 (09:51→20:29)
[2024-01-07 11:56] LABS: Glucose Point of Care 131 mg/dl (65-105)
[2024-01-07 12:00] VITALS: BP 147/75; PULSE 81; RESP 22; TEMP 37.2; O2SAT 100
--- NOTE | 2024-01-07 14:37 | PM.IMPN ---
Progress Note: A&P Assessment and Plan (1) Sepsis: Code(s): A41.9 - Sepsis, unspecified organism Status: Acute Assessment and Plan: Patient presents with sepsis symptoms. CXR clear. BCx NGTD UCx growing Pseudomonas Changed Rocephin to Cefepime WBC normal now. Will need 7 days of treatment. (2) Acute UTI: Code(s): N39.0 - Urinary tract infection, site not specified Status: Acute Assessment and Plan: UA is consistent with UTI. UCx collected. Rocephin started. UCx growing Pseudomonas. Abx adjusted. (3) Acute kidney injury: Code(s): N17.9 - Acute kidney failure, unspecified Status: Acute Assessment and Plan: Patient with underlying renal disease with Cr 1.1-1.6 range. Cr 2.3 but now back down to baseline. Monitor UOP, electrolytes and Cr. (4) Acute hyperkalemia: Code(s): E87.5 - Hyperkalemia Status: Acute Assessment and Plan: Potassium 5.6 on admission and now normal. Follow (5) Acute lower limb ischemia: Code(s): I99.8 - Other disorder of circulatory system Status: Acute Assessment and Plan: Patient presented to the ED 11/22/23 for leg pain and was found to have no pulses in right lower extremity.? He was transferred to [facility] for emergent evaluation and found to have acute lower extremity ischemia.? Taken to the OR for pulseless right foot with thrombectomy from the right external iliac artery and 4 compartment fasciotomy.? 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 Patient required NG tube which was removed 12/06.? Patient was at [facility] for therapy and wishes to return Suspect his feeling of hot/clammy related to over-exertion and deconditioning. Check orthostatic vitals. Continue PT/OT (6) H/O fasciotomy: Code(s): Z98.890 - Other specified postprocedural states Status: Acute Assessment and Plan: As above Continue current treatment plan Plan Code status - full DVT prophylaxis on Eliquis Subjective Date/time seen: 01/07/24 14:37 Interval history: 78yo male status post right external iliac thrombectomy and 4 compartment fasciotomy was transferred from [facility] because of fever and tachycardia.?? Feels hot and clammy after coming back from the pharmacy. He was having similar symptoms when at [facility]. Had similar but mild symptoms when working with PT later in the day. SBP was 100 but improved to 120 when resting. Exam Narrative: AF 99.0 147/75 81 22 100% ra Gen - NARD Chest - CTA bilaterally, nml RR CV - RRR S1/S2 Abd - Soft, NT/ND, Positive BS Ext - Rt LE AMELIA wrapped. Neuro - Alert and appropriate Psych - normal mood and affect Skin - mildly clammy ? Objective Data Vital Signs Vital Signs: Vital Signs - 24 hr 01/06/24 20:00 01/06/24 20:00 01/07/24 04:00 Temperature 97.8 F 97.3 F L Pulse Rate 65 62 Respiratory Rate 12 14 Blood Pressure 107/59 L 132/62 Pulse Oximetry 96 96 98 Oxygen Delivery Room Air 01/07/24 09:50 01/07/24 12:00 Temperature 99.0 F Pulse Rate 81 Respiratory Rate 22 H Blood Pressure 147/75 H Pulse Oximetry 100 Oxygen Delivery Room Air Intake/Output Intake/Output: Intake & Output 01/04/24 01/05/24 01/06/24 01/07/24 23:59 23:59 23:59 23:59 Intake Total 3250 1730 2352 1250 Output Total 3350 2575 1800 2500 Balance -100 -845 552 -1250 Meds/Results Medications: Active Medications Generic Name Dose Route Start Last Admin Trade Name Freq PRN Reason Stop Dose Admin Acetaminophen 650 mg 01/04/24 04:05 01/07/24 12:58 Acetaminophen 325 Mg Tablet PO 650 mg Q6HR DARBY Administration Al Hydrox/Mg Hydrox/Simethicone 30 ml 01/04/24 18:09 Mag Hydrox/Al Hydrox/Simeth 30 Ml Udc PO Q4H PRN Indigestion Allopurinol 300 mg 01/04/24 09:00
[2024-01-07 14:47] VITALS: BP 122/64; PULSE 62
[2024-01-07] MEDS: oxyCODONE HCL (*CRX) 5 MG TAB IR PO ×2 (14:59→20:28)
[2024-01-07 17:06] LABS: Glucose Point of Care 115 mg/dl (65-105)
[2024-01-07 17:30] VITALS: BP 79/51; BP 99/63; PULSE 110; PULSE 90
[2024-01-07] MEDS: SODIUM CHLORIDE 0.9% IV 1,000 ML 100 ML IV CONT (18:55)
[2024-01-07 20:23] VITALS: BP 123/67; PULSE 68; RESP 16; TEMP 36.4; O2SAT 97
[2024-01-07 21:09] LABS: Glucose Point of Care 132 mg/dl (65-105)
[2024-01-08] VITALS (8 sets, daily range): BP systolic 111–143; BP diastolic 53–75; PULSE 65–118; RESP 16–17; TEMP 36.3–36.4; O2SAT 98–100
[2024-01-08] MEDS: ACETAMINOPHEN 325 MG TABLET 650 MG PO ×4 (00:45→17:27)
[2024-01-08] MEDS: CEFEPIME 1 GM/NS 50 ML 1 GM/50 ML BAG IVPB ×2 (04:17→15:32)
[2024-01-08] MEDS: oxyCODONE HCL (*CRX) 5 MG TAB IR PO ×3 (06:22→22:13)
[2024-01-08 08:07] LABS: Glucose Point of Care 97 mg/dl (65-105)
[2024-01-08] MEDS: GABAPENTIN 100 MG CAPSULE 200 MG PO ×3 (08:58→17:27)
[2024-01-08] MEDS: ASPIRIN 81 MG CHEWABLE TABLET PO (08:58)
[2024-01-08] MEDS: ESCITALOPRAM OXALATE 5 MG TABLET PO (08:59)
[2024-01-08] MEDS: APIXABAN 5 MG TABLET PO ×2 (08:59→21:03)
[2024-01-08] MEDS: allopurinoL 300 MG TABLET PO (08:59)
[2024-01-08 11:26] LABS: Glucose Point of Care 104 mg/dl (65-105)
--- NOTE | 2024-01-08 13:16 | PM.IMPN ---
Progress Note: A&P Assessment and Plan (1) Sepsis: Code(s): A41.9 - Sepsis, unspecified organism Status: Acute Assessment and Plan: Patient presents with sepsis symptoms. CXR clear. BCx NGTD UCx growing Pseudomonas Changed Rocephin to Cefepime WBC normal now. Will need 7 days of treatment. (2) Acute UTI: Code(s): N39.0 - Urinary tract infection, site not specified Status: Acute Assessment and Plan: UA is consistent with UTI. UCx collected. Rocephin started. UCx growing Pseudomonas. Abx adjusted. (3) Orthostatic hypotension: Code(s): I95.1 - Orthostatic hypotension Status: Acute Assessment and Plan: Patient was feeling hot/clammy felt related to over-exertion and deconditioning. Symptoms occurred at [facility] and again here. Orthostatic vital signs performed: -Supine 122/64, HR 62 -Sitting 99/63, HR 90 -Standing 79/51, HR 110 TSH and cortisol normal. Kalia pierce added. NS x 1 liter. Repeat SBP 139 -> 136 -> 116 with HR 65 -> 118. Still orthostatic but better. Push fluids Follow clinically. (4) Acute kidney injury: Code(s): N17.9 - Acute kidney failure, unspecified Status: Acute Assessment and Plan: Patient with underlying renal disease with Cr 1.1-1.6 range. Cr 2.3 but now back down to baseline. Monitor UOP, electrolytes and Cr. (5) Acute hyperkalemia: Code(s): E87.5 - Hyperkalemia Status: Acute Assessment and Plan: Potassium 5.6 on admission and now normal. Follow (6) Acute lower limb ischemia: Code(s): I99.8 - Other disorder of circulatory system Status: Acute Assessment and Plan: Patient presented to the ED 11/22/23 for leg pain and was found to have no pulses in right lower extremity.? He was transferred to [facility] for emergent evaluation and found to have acute lower extremity ischemia.? Taken to the OR for pulseless right foot with thrombectomy from the right external iliac artery and 4 compartment fasciotomy.? 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 Patient required NG tube which was removed 12/06.? Patient was at [facility] for therapy and wishes to return Continue PT/OT (7) H/O fasciotomy: Code(s): Z98.890 - Other specified postprocedural states Status: Acute Assessment and Plan: As above Continue current treatment plan Plan Code status - full DVT prophylaxis on Eliquis Subjective Date/time seen: 01/08/24 13:16 Interval history: 78yo male status post right external iliac thrombectomy and 4 compartment fasciotomy was transferred from [facility] because of fever and tachycardia.?? No problems overnight. Not lightheaded with standing. Feels well. Requesting discharge Exam Narrative: AF 97.6 116/59 118 16 100% ra Gen - NARD Chest - CTA bilaterally, nml RR CV - RRR S1/S2 Abd - Soft, NT/ND, Positive BS Ext - Rt LE AMELIA wrapped. Psych - normal mood and affect Skin - warm and dry ? Objective Data Vital Signs Vital Signs: Vital Signs - 24 hr 01/07/24 14:47 01/07/24 17:30 01/07/24 17:30 Temperature Pulse Rate 62 90 110 H Respiratory Rate Blood Pressure 122/64 99/63 L 79/51 L Pulse Oximetry Oxygen Delivery 01/07/24 20:23 01/08/24 05:04 01/08/24 08:00 Temperature 97.5 F L 97.3 F L Pulse Rate 68 69 Respiratory Rate 16 16 Blood Pressure 123/67 143/68 H Pulse Oximetry 97 100 Oxygen Delivery Room Air 01/08/24 08:00 01/08/24 09:47 01/08/24 09:47 Temperature 97.6 F 97.6 F 97.6 F Pulse Rate 65 73 118 H Respiratory Rate 16 16 16 Blood Pressure 139/71 136/57 L 116/59 L Pulse Oximetry 98 100 100 Oxygen Delivery Intake/Output Intake/Output: Intake & Output 01/05/24 01/06/24 01/07/24 01/08/24 23:59 23:59 23:59 23:59 Intake Total 1730 2352 2260 2570 Out
[2024-01-08 16:24] LABS: Glucose Point of Care 102 mg/dl (65-105)
[2024-01-08 20:36] LABS: Glucose Point of Care 102 mg/dl (65-105)
[2024-01-09] MEDS: CEFEPIME 1 GM/NS 50 ML 1 GM/50 ML BAG IVPB ×2 (04:30→17:43)
[2024-01-09 04:45] VITALS: BP 117/71; PULSE 60; RESP 16; TEMP 36.1; O2SAT 97
[2024-01-09] MEDS: ACETAMINOPHEN 325 MG TABLET 650 MG PO ×3 (06:14→17:42)
[2024-01-09 06:29] LABS: Hemoglobin 10.6 g/dL (14.0-18.0); Mean Corpuscular HGB Conc 32.1 g/dl (32-36); Mean Corpuscular Volume 96.5 fl (80-100); Mean Platelet Volume 9.2 fl (7.4-10.4); Platelet Count Result 209 k/mm3 (150-375); Red Blood Count 3.42 M/mm3 (4.6-6.20); Red Cell Distribution Width 15.6 % (11.5-14.5); White Blood Count 6.4 K/mm3 (4.5-10.0)
[2024-01-09 06:41] LABS: Anion Gap 3 mmol/L (8-16); Blood Urea Nitrogen 17 mg/dL (9-20); Calcium 9.3 mg/dL (8.4-10.2); Carbon Dioxide 30 mmol/L (22-30); Chloride 99 mmol/L (98-107); Estimated CRCL calculation 49 ml/min; Estimated Glomerular Filt Rate 54; Glucose 96 mg/dL (65-110); Potassium 4.8 mmol/L (3.4-5.0); Sodium 132 mmol/L (137-145)
[2024-01-09 08:24] LABS: Glucose Point of Care 95 mg/dl (65-105)
[2024-01-09] MEDS: ESCITALOPRAM OXALATE 5 MG TABLET PO (09:58)
[2024-01-09] MEDS: GABAPENTIN 100 MG CAPSULE 200 MG PO ×3 (09:58→17:42)
[2024-01-09] MEDS: APIXABAN 5 MG TABLET PO ×2 (09:58→20:21)
[2024-01-09] MEDS: allopurinoL 300 MG TABLET PO (09:58)
[2024-01-09] MEDS: ASPIRIN 81 MG CHEWABLE TABLET PO (09:58)
[2024-01-09] MEDS: SENNA/DOCUSATE SODIUM TABLET 1 TAB PO (09:59)
[2024-01-09 10:23] VITALS: BP 123/60
[2024-01-09 10:25] VITALS: BP 116/66
[2024-01-09 10:27] VITALS: BP 98/70
--- NOTE | 2024-01-09 12:03 | PM.IMPN ---
Progress Note: A&P Assessment and Plan (1) Sepsis: Code(s): A41.9 - Sepsis, unspecified organism <Angie Mondragon Student - Last Filed: 01/09/24 14:10> Status: Acute <Angie Mondragon, Student - Last Filed: 01/09/24 14:10> Assessment and Plan: Patient presents with sepsis symptoms. CXR clear. BCx NGTD UCx growing Pseudomonas Changed Rocephin to Cefepime WBC normal now. Continue Cefepime (day 3) <Angie Mondragon Student - Last Filed: 01/09/24 14:10> Patient presents with sepsis symptoms related to UTI. CXR clear. BCx Negative. UCx growing Pseudomonas Changed Rocephin to Cefepime WBC normal now. Continue Cefepime (day 02/13) <Toni An MD - Last Filed: 01/09/24 16:19> (2) Acute UTI: Code(s): N39.0 - Urinary tract infection, site not specified <Angie Mondragon, Student - Last Filed: 01/09/24 14:10> Status: Acute <Angie Mondragon, Student - Last Filed: 01/09/24 14:10> Assessment and Plan: UA is consistent with UTI. UCx collected. Rocephin started on arrival UCx growing Pseudomonas. Abx adjusted as seen above <Angie Mondragon, Student - Last Filed: 01/09/24 14:10> (3) Orthostatic hypotension: Code(s): I95.1 - Orthostatic hypotension <Angie Mondragon, Student - Last Filed: 01/09/24 14:10> Status: Acute <Angie Mondragon, Student - Last Filed: 01/09/24 14:10> Assessment and Plan: Patient was feeling hot/clammy felt related to over-exertion and deconditioning. Symptoms occurred at [facility] and again here. Kalia pierce added. Continued pushing fluids Orthostatic vital signs performed 01/08: Supine: 123/60 Sittin/66 Standin/70 Still orthostatic, but getting better TSH and cortisol normal. Follow clinically. <Angie DiazJake Mondragon Student - Last Filed: 01/09/24 14:10> (4) Acute kidney injury: Code(s): N17.9 - Acute kidney failure, unspecified <Angie JoeJake Mondragon, Student - Last Filed: 01/09/24 14:10> Status: Acute <Angie DiazJake Mondragon, Student - Last Filed: 01/09/24 14:10> Assessment and Plan: Patient with underlying renal disease with Cr 1.1-1.6 range. Cr 2.3 but now back down to baseline. Monitor UOP, electrolytes and Cr. <Angie Mondragon, Student - Last Filed: 01/09/24 14:10> (5) Acute hyperkalemia: Code(s): E87.5 - Hyperkalemia <Angie Mondragon, Student - Last Filed: 01/09/24 14:10> Status: Acute <Angie Mondragon, Student - Last Filed: 01/09/24 14:10> Assessment and Plan: Potassium 5.6 on admission and now normal. Follow <Angie Mondragon, Student - Last Filed: 01/09/24 14:10> (6) Acute lower limb ischemia: Code(s): I99.8 - Other disorder of circulatory system <Angie Mondragon, Student - Last Filed: 01/09/24 14:10> Status: Acute <Angie Mondragon, - Last Filed: 01/09/24 14:10> Assessment and Plan: Patient presented to the ED 11/22/23 for leg pain and was found to have no pulses in right lower extremity.? He was transferred to [facility] for emergent evaluation and found to have acute lower extremity ischemia.? Taken to the OR for pulseless right foot with thrombectomy from the right external iliac artery and 4 compartment fasciotomy.? 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 Patient required NG tube which was removed 12/06.? Patient was at [facility] for therapy and wishes to return Continue PT/OT <Angie Mondragon, Student - Last Filed: 01/09/24 14:10> (7) H/O fasciotomy: Code(s): Z98.890 - Other specified postprocedural states <Angie Mondragon, Student - Last Filed: 01/09/24 14:10> Status: Acute <Angie Mondragon, Student - Last Filed: 01/09/24 14:10> As
[2024-01-09 13:00] LABS: Glucose Point of Care 124 mg/dl (65-105)
[2024-01-09] MEDS: oxyCODONE HCL (*CRX) 5 MG TAB IR PO ×2 (13:12→22:06)
[2024-01-09 16:35] VITALS: BP 114/63; PULSE 77; RESP 16; TEMP 36.6; O2SAT 97
[2024-01-09 17:38] LABS: Glucose Point of Care 116 mg/dl (65-105)
[2024-01-09] MEDS: DOCOSANOL 10% CREAM 2 GM 1 APPLIC TOPICAL ×2 (17:43→20:21)
[2024-01-09 20:20] VITALS: BP 104/65; PULSE 69; RESP 16; TEMP 36.4; O2SAT 98
[2024-01-09 20:45] LABS: Glucose Point of Care 123 mg/dl (65-105)
[2024-01-10] MEDS: CEFEPIME 1 GM/NS 50 ML 1 GM/50 ML BAG IVPB ×2 (04:33→15:05)
[2024-01-10 04:59] VITALS: BP 124/63; PULSE 71; RESP 16; TEMP 36.6; O2SAT 94
[2024-01-10] MEDS: ACETAMINOPHEN 325 MG TABLET 650 MG PO ×3 (05:19→21:22)
[2024-01-10 07:48] LABS: Glucose Point of Care 100 mg/dl (65-105)
[2024-01-10 08:00] VITALS: BP 116/70; PULSE 90
[2024-01-10] MEDS: allopurinoL 300 MG TABLET PO (09:05)
[2024-01-10] MEDS: GABAPENTIN 100 MG CAPSULE 200 MG PO ×3 (09:05→17:20)
[2024-01-10] MEDS: APIXABAN 5 MG TABLET PO ×2 (09:05→21:18)
[2024-01-10] MEDS: ASPIRIN 81 MG CHEWABLE TABLET PO (09:06)
[2024-01-10] MEDS: ESCITALOPRAM OXALATE 5 MG TABLET PO (09:06)
[2024-01-10] MEDS: SENNA/DOCUSATE SODIUM TABLET 1 TAB PO ×2 (09:06→17:20)
[2024-01-10] MEDS: DOCOSANOL 10% CREAM 2 GM 1 APPLIC TOPICAL ×5 (09:07→21:19)
[2024-01-10 09:38] VITALS: BP 76/56; BP 82/67; PULSE 106; PULSE 125
--- NOTE | 2024-01-10 10:00 | PM.IMPN ---
Progress Note: A&P Assessment and Plan (1) Sepsis: Code(s): A41.9 - Sepsis, unspecified organism <Angie JoeJake Mondragon Student - Last Filed: 01/10/24 12:20> Status: Acute <Angie Gomes Giancarlo, Student - Last Filed: 01/10/24 12:20> Assessment and Plan: Patient presents with sepsis symptoms related to UTI. CXR clear. BCx Negative. UCx growing Pseudomonas Changed Rocephin to Cefepime WBC normal now. Continue Cefepime (day 5/7) <Angieruma Mondragon, Student - Last Filed: 01/10/24 12:20> (2) Acute UTI: Code(s): N39.0 - Urinary tract infection, site not specified <Angieruma Mondragon, Student - Last Filed: 01/10/24 12:20> Status: Acute <Angie JoeJake Mondragon, Student - Last Filed: 01/10/24 12:20> Assessment and Plan: UA is consistent with UTI. UCx collected. Rocephin started on arrival UCx growing Pseudomonas. Abx adjusted as seen above <Angie JoeJake Mondragon, Student - Last Filed: 01/10/24 12:20> (3) Orthostatic hypotension: Code(s): I95.1 - Orthostatic hypotension <Angie Mondragon, Student - Last Filed: 01/10/24 12:20> Status: Acute <Angie Mondragon, Student - Last Filed: 01/10/24 12:20> Assessment and Plan: Patient was feeling hot/clammy felt related to over-exertion and deconditioning. Symptoms occurred at [facility] and again here. Kalia pierce added. Orthostatic vital signs performed 01/09: Supine: 116/70 Sittin/67, HR- 106 Standin/56, HR- 125 Still orthostatic Will modify pain medication regimen Midodrine ordered 100ml/hr NS ordered TSH and cortisol normal. Follow clinically. <Angie Mondragon, Student - Last Filed: 01/10/24 12:20> Patient was feeling hot/clammy felt related to over-exertion and deconditioning. Symptoms occurred at [facility] and again here. TSH and cortisol normal. Kalia pierce added. Orthostatic vital signs performed 01/09: Supine: 116/70 Sittin/67, HR- 106 Standin/56, HR- 125 Still orthostatic Will modify pain medication regimen Midodrine ordered 100ml/hr NS ordered x 1Liter Follow clinically. <Toni An MD - Last Filed: 01/10/24 16:42> (4) Acute kidney injury: Code(s): N17.9 - Acute kidney failure, unspecified <Angie Mondragon, Student - Last Filed: 01/10/24 12:20> Status: Acute <Angie Mondragon, Student - Last Filed: 01/10/24 12:20> Assessment and Plan: Patient with underlying renal disease with Cr 1.1-1.6 range. Cr 2.3 but now back down to baseline. Monitor UOP, electrolytes and Cr. <Angie Mondargon, Student - Last Filed: 01/10/24 12:20> (5) Acute hyperkalemia: Code(s): E87.5 - Hyperkalemia <Angie Mondragon, Student - Last Filed: 01/10/24 12:20> Status: Acute <Angie Mondragon, Student - Last Filed: 01/10/24 12:20> Assessment and Plan: Potassium 5.6 on admission and now normal. Follow <Angie Mondragon, Student - Last Filed: 01/10/24 12:20> (6) Acute lower limb ischemia: Code(s): I99.8 - Other disorder of circulatory system <Angie Mondragon Student - Last Filed: 01/10/24 12:20> Status: Acute <Angie Mondragon, Student - Last Filed: 01/10/24 12:20> Assessment and Plan: Patient presented to the ED 11/22/23 for leg pain and was found to have no pulses in right lower extremity.? He was transferred to [facility] for emergent evaluation and found to have acute lower extremity ischemia.? Taken to the OR for pulseless right foot with thrombectomy from the right external iliac artery and 4 compartment fasciotomy.? 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 Patient required NG tube which was removed 12/06.? Patient was at [facility] for therapy and wishes to return Continue PT/OT <Angie Mondragon,
[2024-01-10 11:17] LABS: Glucose Point of Care 100 mg/dl (65-105)
[2024-01-10] MEDS: MIDODRINE HCL 2.5 MG TABLET 5 MG PO ×2 (12:17→17:20)
[2024-01-10] MEDS: SODIUM CHLORIDE 0.9% IV 1,000 ML 100 ML IV CONT (12:19)
[2024-01-10 13:59] VITALS: BP 116/58; PULSE 83; RESP 20; TEMP 36.6; O2SAT 100
--- NOTE | 2024-01-10 14:55 | PC.NURSE ---
Patient very active in his care. Multiple family members have been by to visit. Patient and daughter actively helping with wound care/dressing change. Patient able to ambulate with walker very well. helped him clean up in the bathroom. IV fluids and medications started to help with soft BP.
[2024-01-10 16:48] LABS: Glucose Point of Care 129 mg/dl (65-105)
[2024-01-10 20:15] VITALS: BP 127/73; PULSE 57; RESP 16; TEMP 36.6; O2SAT 98
[2024-01-10 20:49] LABS: Glucose Point of Care 100 mg/dl (65-105)
[2024-01-11] MEDS: CEFEPIME 1 GM/NS 50 ML 1 GM/50 ML BAG IVPB ×2 (04:36→15:09)
[2024-01-11 05:04] VITALS: BP 129/67; PULSE 72; RESP 18; TEMP 36.3; O2SAT 95
[2024-01-11 06:50] LABS: Hematocrit 32.1 % (42.0-52.0); Hemoglobin 10.2 g/dL (14.0-18.0); Mean Corpuscular HGB Conc 31.8 g/dl (32-36); Mean Corpuscular Hemoglobin 30.8 pg (26-34); Mean Platelet Volume 9.6 fl (7.4-10.4); Platelet Count Result 227 k/mm3 (150-375); Red Blood Count 3.31 M/mm3 (4.6-6.20); Red Cell Distribution Width 15.7 % (11.5-14.5); White Blood Count 7.3 K/mm3 (4.5-10.0)
[2024-01-11 07:01] LABS: Anion Gap 7 mmol/L (8-16); Blood Urea Nitrogen 17 mg/dL (9-20); Calcium 8.9 mg/dL (8.4-10.2); Carbon Dioxide 26 mmol/L (22-30); Chloride 97 mmol/L (98-107); Estimated CRCL calculation 57 ml/min; Estimated Glomerular Filt Rate > 60; Glucose 97 mg/dL (65-110); Potassium 4.3 mmol/L (3.4-5.0); Sodium 130 mmol/L (137-145)
[2024-01-11 07:50] LABS: Glucose Point of Care 100 mg/dl (65-105)
[2024-01-11 08:00] VITALS: BP 126/67; PULSE 57; RESP 18; TEMP 35.6; O2SAT 94
[2024-01-11] MEDS: APIXABAN 5 MG TABLET PO (09:03)
[2024-01-11] MEDS: SENNA/DOCUSATE SODIUM TABLET 1 TAB PO (09:03)
[2024-01-11] MEDS: GABAPENTIN 100 MG CAPSULE 200 MG PO ×2 (09:03→12:50)
[2024-01-11] MEDS: ASPIRIN 81 MG CHEWABLE TABLET PO (09:03)
[2024-01-11] MEDS: MIDODRINE HCL 2.5 MG TABLET 5 MG PO (09:03)
[2024-01-11] MEDS: allopurinoL 300 MG TABLET PO (09:03)
[2024-01-11] MEDS: ESCITALOPRAM OXALATE 5 MG TABLET PO (09:03)
[2024-01-11] MEDS: DOCOSANOL 10% CREAM 2 GM 1 APPLIC TOPICAL ×3 (09:06→15:15)
[2024-01-11 09:09] VITALS: BP 118/65; BP 127/71
--- NOTE | 2024-01-11 11:11 | PCNWS ---
Weekly nutritional screen. Patient is tolerating current heart healthy diet with adequate intake 75-100%. No weight loss reported. No nutritional needs at this time.
[2024-01-11 14:00] VITALS: BP 126/67; PULSE 63; TEMP 35.9; O2SAT 99
--- NOTE | 2024-01-11 15:24 | PM.DS ---
DS: Admitting Diagnosis Discharge Date 01/11/24 Admitting Diagnosis Fever and tachycardia DS: Discharge Diagnosis Discharge Diagnosis (1) Sepsis: Code(s): A41.9 - Sepsis, unspecified organism Status: Acute (2) Acute UTI: Code(s): N39.0 - Urinary tract infection, site not specified Status: Acute (3) Orthostatic hypotension: Code(s): I95.1 - Orthostatic hypotension Status: Acute (4) Acute kidney injury: Code(s): N17.9 - Acute kidney failure, unspecified Status: Acute (5) Acute hyperkalemia: Code(s): E87.5 - Hyperkalemia Status: Acute (6) Acute lower limb ischemia: Code(s): I99.8 - Other disorder of circulatory system Status: Acute (7) H/O fasciotomy: Code(s): Z98.890 - Other specified postprocedural states Status: Acute DS: Summary Hospital Course Reason for hospitalization: 78yo male status post right external iliac thrombectomy and 4 compartment fasciotomy was transferred from [facility] because of fever and tachycardia.??Please see H&P for details. Hospital Course: Patient presents with sepsis symptoms. CXR clear. BCx NGTD. UCx growing Pseudomonas. Started on Rocephin but changed to Cefepime. WBC normal now. Plan for 7 days of treatment. Patient with underlying renal disease with Cr 1.1-1.6 range. Cr was 2.3 but now back down to baseline. Potassium 5.6 on admission relate to the [place] and now normal. Patient was at [facility] for recent acute lower extremity ischemia and 4 compartment fasciotomy.?He worked with PT/OT here. He overall did well and was able to be discharged on 01/11/24 Status at Discharge Cognitive/behavioral status at discharge: stable Time Spent with Patient Time attestation: Total time spent providing and/or coordinating discharge services: 35 minutes Time spent: Greater than 30 minutes Exam Narrative: AF 96.7 126/67 63 18 99% ra Gen - NARD Chest - CTA bilaterally, nml RR CV - RRR S1/S2 Abd - Soft, NT/ND, Positive BS Ext - Rt LE AMELIA wrapped. Psych - normal mood and affect Skin - warm and dry ? DS: Data Data Completed and Pending Labs on day of discharge: Labs from last 24 hours 01/11/24 01/11/24 01/10/24 07:46 06:14 20:20 WBC 7.3 RBC 3.31 L Hgb 10.2 L Hct 32.1 L MCV 97.0 MCH 30.8 MCHC 31.8 L RDW 15.7 H Plt Count 227 MPV 9.6 Sodium 130 L Potassium 4.3 Chloride 97 L Carbon Dioxide 26 Anion Gap 7 L BUN 17 Creatinine 1.10 Estim Creat Clear Calc 57 Estimated GFR > 60 Glucose 97 POC Capillary Glucose 100 100 Calcium 8.9 01/10/24 16:45 WBC RBC Hgb Hct MCV MCH MCHC RDW Plt Count MPV Sodium Potassium Chloride Carbon Dioxide Anion Gap BUN Creatinine Estim Creat Clear Calc Estimated GFR Glucose POC Capillary Glucose 129 H Calcium Discharge Plan Discharge Attending physician on discharge: Toni An Discharging Clinician: Toni An Anticipated Discharge Date/Time: 01/11/24 15:30 Patient Disposition: [facility] Activity: as tolerated Diet: heart healthy Discharge Instructions: Have patient avoid excessive free water intake Take precautions to avoid falls. Rise slowly from a lying or sitting position. Pause before standing or walking. Contact the doctor if the patient has any type of trauma, lightheadedness with standing or other worrisome symptoms. Avoid NSAIDs (ibuprofen, naproxen, Aleve). Tylenol is safe to take. Continue Cefepime through the morning of 01/13/24 Follow-up with the provider at the facility. Thank you for using [facility] for your health care needs. Patient Instructions: Apixaban (By mouth) Follow-up/Referrals: Hima,Nayeli Linda MD [Primary Care Provider] - Call for Appointment Discharge Medications: New cefepime 1 gram Recon Soln 1 g IV Q12H Qty: 3 0RF Rx I
== END 2024-01-11 16:20 | DRG 872 ==
LOC: ANHED 01-04 00:32 → ANHIMU 01-04 01:28 → ANH3MEDSUR 01-04 18:14
PROVIDERS: Internal Medicine; Admitting Provider Internal Medicine Infectious Disease; Emergency Provider Emergency Medicine; PCP Family Medicine; Visit Provider Internal Medicine
DX: A41.9 Sepsis, unspecified organism (principal); N39.0 Urinary tract infection, site not specified; N17.9 Acute kidney failure, unspecified; E87.1 Hypo-osmolality and hyponatremia; E87.5 Hyperkalemia; I95.1 Orthostatic hypotension; B96.5 Pseudomonas (aeruginosa) (mallei) (pseudomallei) as the cause of diseases classified elsewhere; Z20.822 Contact with and (suspected) exposure to COVID-19; Z87.891 Personal history of nicotine dependence; Z79.82 Long term (current) use of aspirin; Z98.890 Other specified postprocedural states
CPT/HCPCS: 36415; 71045; 80048; 80053; 81001; 82533; 82948; 83605; 83690; 83735; 83880; 84100; 84443; 84484; 85025; 85027; 85610; 85730; 86850; 86900; 86901; 87086; 87186; 87637; 93005; 96361; 96365; 96375; 97116; 97161; 97165; 97530; 97535; 99285; A9270; J0692; J0696; J1815; J7030; J7120